=== PATIENT | female | born 1955 | race Caucasian/White ===

== ENCOUNTER → 2016-06-17 12:32 | Outpatient (CLI) | payer MEDICARE ==
[2016-06-17 12:45] LABS: HEMOGLOBIN A1C 5.4 % (4.8-6.0)
== END | disposition home or self-care (01) ==
LOC: D.LABREF 12:32
PROVIDERS: Emergency Medicine
DX: E11.9 Type 2 diabetes mellitus without complications (principal)

== ENCOUNTER 2016-07-28 15:13 | Emergency (ER) | payer MEDICARE | END 2016-07-28 17:51 | disposition home or self-care (01) | LOC: D.ER 15:13 | DX: G89.29 Other chronic pain (principal); M79.7 Fibromyalgia; F32.9 Major depressive disorder, single episode, unspecified; I10 Essential (primary) hypertension; E11.9 Type 2 diabetes mellitus without complications; F17.200 Nicotine dependence, unspecified, uncomplicated ==

== ENCOUNTER → 2016-09-15 10:24 | Outpatient (CLI) | payer MEDICARE ==
[2016-09-15 13:08] LABS: HEMOGLOBIN A1C 5.7 % (4.8-6.0)
== END | disposition home or self-care (01) ==
LOC: D.LABREF 10:24
PROVIDERS: Family Medicine
DX: E11.9 Type 2 diabetes mellitus without complications (principal)

== ENCOUNTER 2017-01-23 09:45 | Emergency (ER) | payer MEDICARE, MEDICAID | END 2017-01-23 11:37 | disposition home or self-care (01) | LOC: D.ER 09:45 | DX: S49.92XA Unspecified injury of left shoulder and upper arm, initial encounter (principal); X58.XXXA Exposure to other specified factors, initial encounter; Y93.89 Activity, other specified; Y92.89 Other specified places as the place of occurrence of the external cause; M25.512 Pain in left shoulder; E11.9 Type 2 diabetes mellitus without complications; I10 Essential (primary) hypertension; F17.200 Nicotine dependence, unspecified, uncomplicated ==

== ENCOUNTER 2019-05-18 08:00 | Outpatient (CLI) | payer MEDICARE, MEDICAID | END 2019-05-18 23:59 | disposition home or self-care (01) | LOC: D.MAMMO 08:00 | PROVIDERS: ATTEND Nurse Practitioner | DX: N64.52 Nipple discharge (principal) ==